=== PATIENT | male | born 1980 | race African-American/Black ===

== ENCOUNTER 2023-07-28 10:19 | Emergency (ER) | payer BC ==
[~2023-07-28] VITALS: Ht 180.3 cm; Wt 59.5 kg
[2023-07-28 10:48] LABS: APPEARANCE, URINE CLEAR (CLEAR); BACTERIA, URINE AUTO NEGATIVE (NEGATIVE); BILIRUBIN, URINE AUTO NEGATIVE (NEGATIVE); BLOOD, URINE BLOOD 1+ (NEGATIVE); COLOR, URINE YELLOW (YELLOW); GLUCOSE, URINE (UA) AUTO NEGATIVE (NEGATIVE); KETONE, URINE AUTO NEGATIVE (NEGATIVE); LEUKOCYTE ESTERASE, URINE AUTO NEGATIVE (NEGATIVE); NITRITE, URINE AUTO NEGATIVE (NEGATIVE); PROTEIN, URINE AUTO 1+ mg/dL (NEGATIVE); RBC, URINE AUTO 0 /HPF (0-3); SPECIFIC GRAVITY URINE AUTO 1.004 (1.002-1.035); SQUAMOUS EPITHELIAL CELL UR AU 0 /HPF (0-6); UROBILINOGEN, URINE AUTO 0.2 mg/dL (0.0-2.0); WBC, URINE AUTO 1 /HPF (0-3)
[2023-07-28] MEDS ORDERED: NS 1,000 ML IV ONE (12:40)
[2023-07-28 13:26] LABS: HEMATOCRIT 27.1 % (42.0-52.0); HEMOGLOBIN 8.4 g/dl (13.5-17.5); MEAN CORPUSCULAR HEMOGLOBIN 23.4 pg (27.0-33.0); MEAN CORPUSCULAR VOLUME 75.5 fl (80.0-96.0); PLATELET COUNT, AUTOMATED 626 10^3/uL (150-450); RED BLOOD COUNT 3.59 10^6/uL (4.30-6.10); WHITE BLOOD COUNT 14.6 10^3/uL (4.0-10.0)
[2023-07-28 13:49] LABS: ERYTHROCYTE SEDIMENTATION RATE > 130 mm/hr (0-15)
[2023-07-28 13:59] LABS: BLOOD UREA NITROGEN 6 MG/DL (9-23); CALCIUM LEVEL 8.5 MG/DL (8.5-10.1); CARBON DIOXIDE LEVEL 26 MMOL/L (20-31); CHLORIDE LEVEL 98 MMOL/L (98-107); CREATININE FOR GFR 0.46 MG/DL (0.70-1.30); GLOMERULAR FILTRATION RATE > 60.0 (>60); GLUCOSE, FASTING 99 MG/DL (60-100); POTASSIUM SERUM 4.4 MMOL/L (3.5-5.1); SODIUM LEVEL 132 MMOL/L (136-145)
[2023-07-28 14:08] LABS: ATYPICAL LYMPH 5 % (0-5); LYMPHOCYTES 20 % (16-44); MONOCYTES 11 % (0-5); NEUTROPHILS 64 % (28-66); PLATELET ESTIMATE NORMAL (NORMAL)
[2023-07-28] MEDS ORDERED: ISOVUE-370 76% 100ML VIAL As Ordered ONE (14:26)
[2023-07-28 16:39] VITALS: BP 131/66; TEMP 101.2; O2SAT 97
== END 2023-07-28 17:01 | disposition home or self-care (01) ==
LOC: M ED 10:19
DX: R50.9 Fever, unspecified (principal); R59.0 Localized enlarged lymph nodes; G91.9 Hydrocephalus, unspecified; Z98.2 Presence of cerebrospinal fluid drainage device; F17.200 Nicotine dependence, unspecified, uncomplicated
CPT/HCPCS: 70450; 70491; 71260; 80048; 81001; 83605; 85025; 85652; 86140; 86618; 87040; 87207; 87469; 87484; 87486; 87581; 87633; 87798; 96360; 96361; 99284; Q9967

== ENCOUNTER → 2023-08-06 | Outpatient (CLI) | payer BC ==
[~2023-08-06] MED LIST: LIDOCAINE 1% MDV 20ML VIAL As Ordered ONE
[2023-08-06 12:15] VITALS: TEMP 101.5
[2023-08-06 12:57] VITALS: BP 121/64; O2SAT 99
== END ==
LOC: M IRPRO 11:54
PROVIDERS: ATTEND Otolaryngology
DX: R22.1 Localized swelling, mass and lump, neck (principal)

== ENCOUNTER 2023-08-23 06:22 | Day surgery (SDC) | payer BC ==
[~2023-08-23] VITALS: Ht 180.3 cm; Wt 55.6 kg
[2023-08-23] MEDS ORDERED: LR 1,000 ML IV SCH ×2 (06:35→08:50)
[2023-08-23] MEDS ORDERED: LIDOCAINE W/EPINEPHRINE 1% 20ML VIAL As Ordered ONE (06:46)
[2023-08-23] MEDS ORDERED: BACITRACIN OINTMENT 30GM TUBE As Ordered ONE (06:47)
[2023-08-23] MEDS ORDERED: fentaNYL 100 MCG/2 ML INJECTION As Ordered ONE (07:03)
[2023-08-23] MEDS ORDERED: LIDOCAINE 2% 100MG/5ML SDV (FOR ANES.) As Ordered ONE (07:03)
[2023-08-23] MEDS ORDERED: ROCURONIUM BROMIDE 50MG/5ML VIAL As Ordered ONE (07:03)
[2023-08-23] MEDS ORDERED: propofoL 200 MG/20 ML VIAL As Ordered ONE (07:03)
[2023-08-23] MEDS ORDERED: MIDAZOLAM INJ 2MG/2ML VIAL As Ordered ONE (07:03)
[2023-08-23] MEDS ORDERED: SUCCINYLCHOLINE 100MG/5ML SYRINGE As Ordered ONE (07:04)
[2023-08-23] MEDS ORDERED: ONDANSETRON 4MG 2ML VIAL As Ordered ONE (07:41)
[2023-08-23] MEDS ORDERED: HYDROmorphone HCL 2MG/ML 1ML VIAL As Ordered ONE (07:45)
[2023-08-23] MEDS ORDERED: SUGAMMADEX SODIUM 500 MG/5 ML VIAL (BRIDION) As Ordered ONE ×2 (07:45→07:46)
[2023-08-23] MEDS ORDERED: ACETAMINOPHEN 1000MG 100ML IV BAG As Ordered ONE (07:45)
[2023-08-23] MEDS ORDERED: CLINDAMYCIN 600MG/50ML PREMIX BAG As Ordered ONE (07:54)
[2023-08-23] MEDS ORDERED: oxyCODONE 5MG TAB PO PRN (08:50)
[2023-08-23] MEDS ORDERED: fentaNYL 100 MCG/2 ML INJECTION IV PRN (08:50)
[2023-08-23] MEDS ORDERED: HYDROMORPHONE HCL 0.5 MG/ 0.5 ML SYRINGE IV PRN (08:50)
[2023-08-23] MEDS ORDERED: ONDANSETRON 4MG 2ML VIAL IV PRN (08:50)
[2023-08-23 11:35] VITALS: BP 105/60; TEMP 96.5; O2SAT 97
== END 2023-08-23 11:51 | disposition home or self-care (01) ==
LOC: M SDC 06:22
PROVIDERS: ATTEND Otolaryngology
DX: C81.11 Nodular sclerosis Hodgkin lymphoma, lymph nodes of head, face, and neck (principal)
CPT/HCPCS: 38510; 88305; J0131; J0330; J0737; J1100; J1170; J2250; J2405; J3010

== ENCOUNTER 2023-10-02 15:29 | Inpatient (IN) | payer BC ==
[~2023-10-02] VITALS: Ht 180.3 cm; Wt 50.4 kg
[~2023-10-02 15:29] MED LIST changes: +ACET-683 PO; +HYDR-3713 PO; +LEVO1TAB39 PO; -LIDOCAINE 1% MDV 20ML VIAL As Ordered ONE; +NAPR500T6 PO
[2023-10-02 16:43] LABS: ALBUMIN 1.3 G/DL (3.2-5.2); ALKALINE PHOSPHATASE 161 U/L (46-116); ALT/SGPT 19 U/L (7.0-40); AST/SGOT 34 U/L (<34); BILIRUBIN,DIRECT 0.4 MG/DL (<0.4); BILIRUBIN,TOTAL 0.8 MG/DL (0.3-1.2); BLOOD UREA NITROGEN 11 MG/DL (9-23); CALCIUM LEVEL 7.8 MG/DL (8.5-10.1); CARBON DIOXIDE LEVEL 25 MMOL/L (20-31); CHLORIDE LEVEL 90 MMOL/L (98-107); CREATININE FOR GFR 0.33 MG/DL (0.70-1.30); GLOMERULAR FILTRATION RATE > 60.0 (>60); GLUCOSE, FASTING 79 MG/DL (60-100); POTASSIUM SERUM 4.3 MMOL/L (3.5-5.1); SODIUM LEVEL 126 MMOL/L (136-145); TOTAL PROTEIN 5.7 G/DL (5.7-8.2)
[2023-10-02] MEDS ORDERED: NS 1,000 ML IV ONE ×2 (16:50→18:00)
[2023-10-02] MEDS ORDERED: ISOVUE-370 76% 100ML VIAL As Ordered ONE (16:58)
[2023-10-02] MEDS ORDERED: cefTRIAXone SOD 2 GM in D5W MINI-BAG PLUS 50 ML IV ONE (17:00)
[2023-10-02 17:36] LABS: HEMATOCRIT 21.7 % (42.0-52.0); LYMPH # 0.7 10^3/uL (1.5-5.0); MEAN CORPUSCULAR HEMOGLOBIN 23.3 pg (27.0-33.0); MEAN CORPUSCULAR HGB CONC 29.5 g/dl (32.0-36.5); MEAN CORPUSCULAR VOLUME 78.9 fl (80.0-96.0); MONO # 0.6 10^3/uL (0.0-0.8); MONO % 8.4 % (2.0-8.0); NEUTROPHILS # 5.5 10^3/uL (1.5-8.5); NEUTROPHILS % 80.9 % (36.0-66.0); PLATELET COUNT, AUTOMATED 249 10^3/uL (150-450); RED BLOOD COUNT 2.75 10^6/uL (4.30-6.10); VENOUS HCO3 29.8 MMOL/L (23.0-27.0); VENOUS O2 SATURATION 72.3 % (60.0-80.0); VENOUS PARTIAL PRESSURE CO2 45.6 mmHg (38.0-50.0); VENOUS PARTIAL PRESSURE O2 41.2 mmHg (30.0-50.0); VENOUS PH 7.433 UNITS (7.330-7.430); VENOUS STANDARD HCO3 28.6 MMOL/L; VENOUS TOTAL CO2 31.2 MMOL/L (24.0-28.0); WHITE BLOOD COUNT 6.8 10^3/uL (4.0-10.0)
[2023-10-02 17:38] LABS: HEMOGLOBIN 6.4 g/dl (13.5-17.5)
[2023-10-02] MEDS ORDERED: MED REC IN PROGRESS XX SCH (17:40)
[2023-10-02 17:43] LABS: THYROID STIMULATING HORMONE 1.169 uIU/ML (0.55-4.78)
[2023-10-02 17:48] LABS: INR 1.52; PROTHROMBIN TIME 17.8 SECONDS (12.5-14.5)
[2023-10-02] MEDS ORDERED: IBUP200C25 PO (18:16)
[2023-10-02] MEDS ORDERED: HOME MED LIST COMPLETE! XX SCH (18:20)
[2023-10-02 18:25] LABS: PROCALCITONIN 5.58 ng/ml
[2023-10-02 18:39] LABS: HEMOGLOBIN 4.6 g/dl (13.5-17.5)
[2023-10-02 18:40] LABS: HEMATOCRIT 15.8 % (42.0-52.0)
[2023-10-02] MEDS ORDERED: CALCIUM GLUCONATE 1,000 MG in D5W MINI-BAG PLUS 100 ML IV ONE (18:40)
[2023-10-02 19:26] LABS: OSMOLALITY SERUM 252 MOSM/KG (275-295)
[2023-10-02] MEDS: DOXYCYCLINE HYCLATE 100MG TABLET PO SCH (19:50)
[2023-10-02] MEDS: NS 1,000 ML IV SCH (19:50)
[2023-10-02 21:18] VITALS: BP 118/78; TEMP 99.1; O2SAT 98
[2023-10-02 21:27] VITALS: BP 128/78; TEMP 99.1
[2023-10-02 21:38] VITALS: BP 124/76; TEMP 99.1; O2SAT 98
[2023-10-02 22:15] VITALS: BP 124/76; TEMP 98.9; O2SAT 98
[2023-10-02 23:00] VITALS: BP 128/74; TEMP 98.9; O2SAT 98
[2023-10-03 01:49] VITALS: BP 141/86; TEMP 100.2; O2SAT 97
[2023-10-03 02:03] VITALS: BP 137/88; TEMP 99.4; O2SAT 98
[2023-10-03 02:23] VITALS: BP 124/78; TEMP 99; O2SAT 98
[2023-10-03 03:00] VITALS: BP 118/78; TEMP 99.3; O2SAT 98
[2023-10-03 03:50] VITALS: BP 124/74; TEMP 98.9; O2SAT 98
[2023-10-03 04:46] LABS: SODIUM,RANDOM URINE 42 MMOL/L
[2023-10-03 04:56] LABS: BLOOD UREA NITROGEN 8 MG/DL (9-23); CALCIUM LEVEL 6.6 MG/DL (8.5-10.1); CARBON DIOXIDE LEVEL 23 MMOL/L (20-31); CHLORIDE LEVEL 91 MMOL/L (98-107); CREATININE FOR GFR 0.29 MG/DL (0.70-1.30); GLOMERULAR FILTRATION RATE > 60.0 (>60); GLUCOSE, FASTING 82 MG/DL (60-100); POTASSIUM SERUM 3.7 MMOL/L (3.5-5.1); SODIUM LEVEL 123 MMOL/L (136-145)
[2023-10-03 05:00] LABS: OSMOLALITY URINE 644 MOSM/KG (50-1400)
[2023-10-03] MEDS: NS 1,000 ML IV SCH (06:23)
[2023-10-03 08:34] LABS: BASO % 0.1 % (0.0-1.0); HEMATOCRIT 27.3 % (42.0-52.0); LYMPH # 0.8 10^3/uL (1.5-5.0); LYMPH % 9.9 % (24.0-44.0); MEAN CORPUSCULAR HEMOGLOBIN 25.9 pg (27.0-33.0); MEAN CORPUSCULAR VOLUME 78.4 fl (80.0-96.0); MONO # 0.6 10^3/uL (0.0-0.8); MONO % 6.9 % (2.0-8.0); NEUTROPHILS # 6.9 10^3/uL (1.5-8.5); NEUTROPHILS % 82.7 % (36.0-66.0); PLATELET COUNT, AUTOMATED 247 10^3/uL (150-450); RED BLOOD COUNT 3.48 10^6/uL (4.30-6.10); WHITE BLOOD COUNT 8.3 10^3/uL (4.0-10.0)
[2023-10-03] MEDS: DOXYCYCLINE HYCLATE 100MG TABLET PO SCH ×2 (08:40→21:11)
[2023-10-03] MEDS ORDERED: MIRALAX *UNIT DOSE* 17GM PACKET PO PRN (08:50)
[2023-10-03] MEDS ORDERED: SENOKOT S TAB PO PRN (08:50)
[2023-10-03 08:51] LABS: MAGNESIUM LEVEL 1.8 MG/DL (1.8-2.4)
[2023-10-03 08:56] LABS: ALKALINE PHOSPHATASE 134 U/L (46-116); ALT/SGPT 14 U/L (7.0-40); AST/SGOT 24 U/L (<34); BILIRUBIN,TOTAL 1.2 MG/DL (0.3-1.2); BLOOD UREA NITROGEN 8 MG/DL (9-23); CARBON DIOXIDE LEVEL 25 MMOL/L (20-31); CHLORIDE LEVEL 93 MMOL/L (98-107); CREATININE FOR GFR 0.27 MG/DL (0.70-1.30); GLOMERULAR FILTRATION RATE > 60.0 (>60); GLUCOSE, FASTING 82 MG/DL (60-100); POTASSIUM SERUM 3.3 MMOL/L (3.5-5.1); SODIUM LEVEL 126 MMOL/L (136-145); TOTAL PROTEIN 4.7 G/DL (5.7-8.2)
[2023-10-03] MEDS: DICLOFENAC EPOLAMINE 1.3% PATCH TOP SCH ×2 (09:00→21:00)
[2023-10-03] MEDS ORDERED: POTASSIUM CHLORIDE 10% LIQ 20MEQ/15ML UDC PO ONE (10:55)
[2023-10-03] MEDS ORDERED: ISOVUE-370 76% 100ML VIAL As Ordered ONE (10:59)
[2023-10-03] MEDS ORDERED: ENOXAPARIN 40MG/0.4ML SYRINGE (J1650 PER 10MG) SC ONE (12:00)
[2023-10-03] MEDS ORDERED: PERCOCET 5MG/325MG TAB PO ONE (12:00)
[2023-10-03] MEDS ORDERED: CALCIUM GLUCONATE 1,000 MG in D5W MINI-BAG PLUS 100 ML IV ONE ×2 (12:00→18:30)
[2023-10-03] MEDS: CALCIUM/VITAMIN D 500 MG TAB PO SCH ×2 (12:04→18:11)
[2023-10-03] MEDS: SODIUM CHLORIDE 1 GM TAB PO SCH ×2 (12:30→18:11)
[2023-10-03 12:32] LABS: BLOOD UREA NITROGEN 8 MG/DL (9-23); CALCIUM LEVEL 7.3 MG/DL (8.5-10.1); CARBON DIOXIDE LEVEL 25 MMOL/L (20-31); CHLORIDE LEVEL 92 MMOL/L (98-107); CREATININE FOR GFR 0.27 MG/DL (0.70-1.30); GLOMERULAR FILTRATION RATE > 60.0 (>60); GLUCOSE, FASTING 84 MG/DL (60-100); POTASSIUM SERUM 3.2 MMOL/L (3.5-5.1); SODIUM LEVEL 126 MMOL/L (136-145)
[2023-10-03] MEDS ORDERED: MAG SULF 1GM/100ML (MAG RUN) 1 GM in IV 1 EA IV ONE (13:00)
[2023-10-03] MEDS: KCL 40MEQ in NS 1000ML 1,000 ML IV SCH ×2 (13:37→21:12)
[2023-10-03] MEDS ORDERED: MEGESTROL 400MG 10ML SUSP ORAL SYRINGE *DRAW UP EXACT DOSE PO ONE (17:00)
[2023-10-03] MEDS ORDERED: cefTRIAXone SOD 2 GM in D5W MINI-BAG PLUS 50 ML IV SCH (18:00)
[2023-10-03 19:22] LABS: BLOOD UREA NITROGEN 9 MG/DL (9-23); CALCIUM LEVEL 7.2 MG/DL (8.5-10.1); CARBON DIOXIDE LEVEL 26 MMOL/L (20-31); CHLORIDE LEVEL 96 MMOL/L (98-107); CREATININE FOR GFR 0.29 MG/DL (0.70-1.30); GLOMERULAR FILTRATION RATE > 60.0 (>60); GLUCOSE, FASTING 95 MG/DL (60-100); SODIUM LEVEL 129 MMOL/L (136-145)
[2023-10-03] MEDS: MAGNESIUM OXIDE 400MG TAB (MAG-OX) PO SCH (21:10)
[2023-10-03] MEDS: POTASSIUM CHLORIDE 10MEQ SR TABLET PO SCH (21:12)
[2023-10-04 01:18] LABS: BLOOD UREA NITROGEN 11 MG/DL (9-23); CALCIUM LEVEL 7.1 MG/DL (8.5-10.1); CARBON DIOXIDE LEVEL 24 MMOL/L (20-31); CHLORIDE LEVEL 93 MMOL/L (98-107); CREATININE FOR GFR 0.33 MG/DL (0.70-1.30); GLOMERULAR FILTRATION RATE > 60.0 (>60); GLUCOSE, FASTING 96 MG/DL (60-100); POTASSIUM SERUM 4.3 MMOL/L (3.5-5.1); SODIUM LEVEL 126 MMOL/L (136-145)
[2023-10-04 06:48] LABS: BASO % 0.1 % (0.0-1.0); HEMATOCRIT 28.9 % (42.0-52.0); HEMOGLOBIN 9.4 g/dl (13.5-17.5); LYMPH # 0.6 10^3/uL (1.5-5.0); LYMPH % 7.3 % (24.0-44.0); MEAN CORPUSCULAR HEMOGLOBIN 25.5 pg (27.0-33.0); MEAN CORPUSCULAR HGB CONC 32.5 g/dl (32.0-36.5); MEAN CORPUSCULAR VOLUME 78.5 fl (80.0-96.0); MONO # 0.4 10^3/uL (0.0-0.8); NEUTROPHILS # 7.7 10^3/uL (1.5-8.5); NEUTROPHILS % 87.1 % (36.0-66.0); PLATELET COUNT, AUTOMATED 247 10^3/uL (150-450); RED BLOOD COUNT 3.68 10^6/uL (4.30-6.10); WHITE BLOOD COUNT 8.8 10^3/uL (4.0-10.0)
[2023-10-04 07:21] LABS: BLOOD UREA NITROGEN 8 MG/DL (9-23); CALCIUM LEVEL 6.8 MG/DL (8.5-10.1); CARBON DIOXIDE LEVEL 22 MMOL/L (20-31); CHLORIDE LEVEL 95 MMOL/L (98-107); CREATININE FOR GFR 0.27 MG/DL (0.70-1.30); GLOMERULAR FILTRATION RATE > 60.0 (>60); GLUCOSE, FASTING 98 MG/DL (60-100); POTASSIUM SERUM 4.9 MMOL/L (3.5-5.1); SODIUM LEVEL 125 MMOL/L (136-145)
[2023-10-04] MEDS: KCL 40MEQ in NS 1000ML 1,000 ML IV SCH ×2 (07:30→13:02)
[2023-10-04] MEDS ORDERED: ISOVUE-370 76% 100ML VIAL As Ordered ONE (07:50)
[2023-10-04 08:00] VITALS: BP 122/68; PULSE 89; TEMP 98.4; O2SAT 95
[2023-10-04] MEDS: SODIUM CHLORIDE 1 GM TAB PO SCH ×3 (09:48→18:22)
[2023-10-04] MEDS: DOXYCYCLINE HYCLATE 100MG TABLET PO SCH ×2 (09:49→20:20)
[2023-10-04] MEDS: POTASSIUM CHLORIDE 10MEQ SR TABLET PO SCH ×2 (09:49→20:09)
[2023-10-04] MEDS: ENOXAPARIN 40MG/0.4ML SYRINGE (J1650 PER 10MG) SC SCH (09:49)
[2023-10-04] MEDS: CALCIUM/VITAMIN D 500 MG TAB PO SCH ×3 (09:50→18:23)
[2023-10-04] MEDS: MAGNESIUM OXIDE 400MG TAB (MAG-OX) PO SCH ×2 (09:50→20:20)
[2023-10-04] MEDS: PERCOCET 5MG/325MG TAB PO PRN (09:50)
[2023-10-04] MEDS: MEGESTROL 400MG 10ML SUSP ORAL SYRINGE *DRAW UP EXACT DOSE PO SCH (09:51)
[2023-10-04] MEDS: DICLOFENAC EPOLAMINE 1.3% PATCH TOP SCH ×2 (09:52→20:19)
[2023-10-04] MEDS: guaiFENesin DM LIQ 10ML UD PO SCH ×2 (12:06→18:23)
[2023-10-04 12:20] VITALS: BP 119/89; TEMP 97.5; O2SAT 96
[2023-10-04 12:46] LABS: BLOOD UREA NITROGEN 9 MG/DL (9-23); CALCIUM LEVEL 7.3 MG/DL (8.5-10.1); CARBON DIOXIDE LEVEL 21 MMOL/L (20-31); CHLORIDE LEVEL 94 MMOL/L (98-107); CREATININE FOR GFR 0.25 MG/DL (0.70-1.30); GLOMERULAR FILTRATION RATE > 60.0 (>60); GLUCOSE, FASTING 107 MG/DL (60-100); SODIUM LEVEL 124 MMOL/L (136-145)
[2023-10-04] MEDS: BACITRACIN OINTMENT 30GM TUBE TOP SCH ×2 (14:11→20:19)
[2023-10-04] MEDS: CEFDINIR 300 MG CAP (OMNICEF) PO SCH (20:19)
[2023-10-04 20:52] VITALS: BP 120/78; TEMP 97.2; O2SAT 96
[2023-10-04] MEDS ORDERED: NS 1,000 ML IV SCH (23:28)
[2023-10-05] MEDS: guaiFENesin DM LIQ 10ML UD PO SCH ×2 (00:16→06:29)
[2023-10-05 05:01] VITALS: BP 128/85; TEMP 97; O2SAT 93
[2023-10-05 06:24] LABS: HEMATOCRIT 29.4 % (42.0-52.0); HEMOGLOBIN 9.5 g/dl (13.5-17.5); LYMPH # 0.4 10^3/uL (1.5-5.0); LYMPH % 4.1 % (24.0-44.0); MEAN CORPUSCULAR HEMOGLOBIN 25.6 pg (27.0-33.0); MEAN CORPUSCULAR HGB CONC 32.3 g/dl (32.0-36.5); MEAN CORPUSCULAR VOLUME 79.2 fl (80.0-96.0); MONO # 0.4 10^3/uL (0.0-0.8); NEUTROPHILS # 8.5 10^3/uL (1.5-8.5); NEUTROPHILS % 91.4 % (36.0-66.0); PLATELET COUNT, AUTOMATED 227 10^3/uL (150-450); RED BLOOD COUNT 3.71 10^6/uL (4.30-6.10); WHITE BLOOD COUNT 9.3 10^3/uL (4.0-10.0)
[2023-10-05 06:45] LABS: BLOOD UREA NITROGEN 10 MG/DL (9-23); CALCIUM LEVEL 7.4 MG/DL (8.5-10.1); CARBON DIOXIDE LEVEL 23 MMOL/L (20-31); CHLORIDE LEVEL 93 MMOL/L (98-107); CREATININE FOR GFR 0.28 MG/DL (0.70-1.30); GLOMERULAR FILTRATION RATE > 60.0 (>60); GLUCOSE, FASTING 67 MG/DL (60-100); POTASSIUM SERUM 4.7 MMOL/L (3.5-5.1); SODIUM LEVEL 123 MMOL/L (136-145)
[2023-10-05] MEDS: POTASSIUM CHLORIDE 10MEQ SR TABLET PO SCH ×2 (08:44→20:05)
[2023-10-05] MEDS: CALCIUM/VITAMIN D 500 MG TAB PO SCH ×3 (09:04→17:21)
[2023-10-05] MEDS: BACITRACIN OINTMENT 30GM TUBE TOP SCH ×2 (09:04→20:04)
[2023-10-05] MEDS: DOXYCYCLINE HYCLATE 100MG TABLET PO SCH ×2 (09:04→20:05)
[2023-10-05] MEDS: DICLOFENAC EPOLAMINE 1.3% PATCH TOP SCH ×2 (09:04→20:04)
[2023-10-05] MEDS: ENOXAPARIN 40MG/0.4ML SYRINGE (J1650 PER 10MG) SC SCH (09:04)
[2023-10-05] MEDS: CEFDINIR 300 MG CAP (OMNICEF) PO SCH ×2 (09:04→20:05)
[2023-10-05 09:28] LABS: OSMOLALITY SERUM 258 MOSM/KG (275-295)
[2023-10-05 09:30] LABS: OSMOLALITY URINE 535 MOSM/KG (50-1400)
[2023-10-05 09:39] LABS: SODIUM,RANDOM URINE 131 MMOL/L
[2023-10-05 09:45] LABS: MAGNESIUM LEVEL 1.9 MG/DL (1.8-2.4)
[2023-10-05] MEDS: MAGNESIUM OXIDE 400MG TAB (MAG-OX) PO SCH ×2 (10:42→20:05)
[2023-10-05] MEDS: MEGESTROL 400MG 10ML SUSP ORAL SYRINGE *DRAW UP EXACT DOSE PO SCH (10:42)
[2023-10-05] MEDS ORDERED: SERTRALINE HCL 50 MG TAB PO ONE (11:15)
[2023-10-05] MEDS ORDERED: guaiFENesin DM LIQ 10ML UD PO PRN (12:00)
[2023-10-05] MEDS: NS 1,000 ML IV SCH ×2 (12:03→23:35)
[2023-10-05] MEDS: PERCOCET 5MG/325MG TAB PO PRN (12:07)
[2023-10-05 12:54] LABS: BLOOD UREA NITROGEN 12 MG/DL (9-23); CALCIUM LEVEL 7.6 MG/DL (8.5-10.1); CARBON DIOXIDE LEVEL 22 MMOL/L (20-31); CHLORIDE LEVEL 94 MMOL/L (98-107); CREATININE FOR GFR 0.25 MG/DL (0.70-1.30); GLOMERULAR FILTRATION RATE > 60.0 (>60); GLUCOSE, FASTING 89 MG/DL (60-100); POTASSIUM SERUM 4.7 MMOL/L (3.5-5.1); SODIUM LEVEL 125 MMOL/L (136-145)
[2023-10-05 14:00] VITALS: BP 101/69; TEMP 97; O2SAT 96
[2023-10-05 14:08] LABS: BODY FLUID CULTURE Not indicated. (.); LEGIONELLA ANTIGEN URINE Negative (Negative); ORGANISM ID Not indicated. (.); SPECIMEN SOURCE Urine (.); URINE STREP PNEUMONIAE ANTIGEN Negative (Negative)
[2023-10-05 19:19] LABS: BLOOD UREA NITROGEN 11 MG/DL (9-23); CALCIUM LEVEL 5.7 MG/DL (8.5-10.1); CARBON DIOXIDE LEVEL 21 MMOL/L (20-31); CHLORIDE LEVEL 102 MMOL/L (98-107); CREATININE FOR GFR 0.22 MG/DL (0.70-1.30); GLOMERULAR FILTRATION RATE > 60.0 (>60); GLUCOSE, FASTING 69 MG/DL (60-100); POTASSIUM SERUM 3.5 MMOL/L (3.5-5.1); SODIUM LEVEL 130 MMOL/L (136-145)
[2023-10-05] MEDS ORDERED: CALCIUM GLUCONATE 1,000 MG in D5W MINI-BAG PLUS 100 ML IV ONE (20:15)
[2023-10-05 21:20] VITALS: BP 128/86; TEMP 97.9; O2SAT 98
[2023-10-06 00:40] LABS: BLOOD UREA NITROGEN 9 MG/DL (9-23); CALCIUM LEVEL 7.7 MG/DL (8.5-10.1); CARBON DIOXIDE LEVEL 22 MMOL/L (20-31); CHLORIDE LEVEL 96 MMOL/L (98-107); CREATININE FOR GFR 0.26 MG/DL (0.70-1.30); GLOMERULAR FILTRATION RATE > 60.0 (>60); GLUCOSE, FASTING 73 MG/DL (60-100); POTASSIUM SERUM 4.5 MMOL/L (3.5-5.1); SODIUM LEVEL 126 MMOL/L (136-145)
[2023-10-06 05:30] VITALS: BP 126/88; TEMP 97.9; O2SAT 96
[2023-10-06 05:38] LABS: BASO % 0.1 % (0.0-1.0); HEMATOCRIT 27.9 % (42.0-52.0); HEMOGLOBIN 8.9 g/dl (13.5-17.5); LYMPH # 0.3 10^3/uL (1.5-5.0); LYMPH % 3.3 % (24.0-44.0); MEAN CORPUSCULAR HEMOGLOBIN 25.4 pg (27.0-33.0); MEAN CORPUSCULAR HGB CONC 31.9 g/dl (32.0-36.5); MEAN CORPUSCULAR VOLUME 79.5 fl (80.0-96.0); MONO # 0.3 10^3/uL (0.0-0.8); MONO % 3.6 % (2.0-8.0); NEUTROPHILS # 7.4 10^3/uL (1.5-8.5); NEUTROPHILS % 92.5 % (36.0-66.0); PLATELET COUNT, AUTOMATED 212 10^3/uL (150-450); RED BLOOD COUNT 3.51 10^6/uL (4.30-6.10)
[2023-10-06 05:59] LABS: BLOOD UREA NITROGEN 11 MG/DL (9-23); CALCIUM LEVEL 6.9 MG/DL (8.5-10.1); CARBON DIOXIDE LEVEL 21 MMOL/L (20-31); CHLORIDE LEVEL 94 MMOL/L (98-107); CREATININE FOR GFR 0.27 MG/DL (0.70-1.30); GLOMERULAR FILTRATION RATE > 60.0 (>60); GLUCOSE, FASTING 68 MG/DL (60-100); POTASSIUM SERUM 4.7 MMOL/L (3.5-5.1); SODIUM LEVEL 123 MMOL/L (136-145)
[2023-10-06] MEDS: POTASSIUM CHLORIDE 10MEQ SR TABLET PO SCH ×2 (09:00→20:27)
[2023-10-06] MEDS: CEFDINIR 300 MG CAP (OMNICEF) PO SCH ×2 (09:38→20:27)
[2023-10-06] MEDS: SERTRALINE HCL 50 MG TAB PO SCH (09:39)
[2023-10-06] MEDS: CALCIUM/VITAMIN D 500 MG TAB PO SCH ×3 (09:39→17:02)
[2023-10-06] MEDS: ENOXAPARIN 40MG/0.4ML SYRINGE (J1650 PER 10MG) SC SCH (09:39)
[2023-10-06] MEDS: MAGNESIUM OXIDE 400MG TAB (MAG-OX) PO SCH ×2 (09:39→20:27)
[2023-10-06] MEDS: DOXYCYCLINE HYCLATE 100MG TABLET PO SCH ×2 (09:39→20:27)
[2023-10-06] MEDS: BACITRACIN OINTMENT 30GM TUBE TOP SCH ×2 (09:39→20:27)
[2023-10-06] MEDS: MEGESTROL 400MG 10ML SUSP ORAL SYRINGE *DRAW UP EXACT DOSE PO SCH (09:40)
[2023-10-06] MEDS ORDERED: TOLVAPTAN 7.5 MG HALF-TAB PO ONE (11:00)
[2023-10-06] MEDS: DICLOFENAC EPOLAMINE 1.3% PATCH TOP SCH ×2 (12:08→20:28)
[2023-10-06 13:06] LABS: BLOOD UREA NITROGEN 14 MG/DL (9-23); CARBON DIOXIDE LEVEL 21 MMOL/L (20-31); CHLORIDE LEVEL 93 MMOL/L (98-107); CREATININE FOR GFR 0.28 MG/DL (0.70-1.30); GLOMERULAR FILTRATION RATE > 60.0 (>60); GLUCOSE, FASTING 72 MG/DL (60-100); POTASSIUM SERUM 4.4 MMOL/L (3.5-5.1); SODIUM LEVEL 123 MMOL/L (136-145)
[2023-10-06 14:00] VITALS: BP 116/78; TEMP 98.6; O2SAT 95
[2023-10-06 19:03] LABS: BLOOD UREA NITROGEN 14 MG/DL (9-23); CALCIUM LEVEL 7.1 MG/DL (8.5-10.1); CARBON DIOXIDE LEVEL 21 MMOL/L (20-31); CHLORIDE LEVEL 94 MMOL/L (98-107); CREATININE FOR GFR 0.29 MG/DL (0.70-1.30); GLOMERULAR FILTRATION RATE > 60.0 (>60); GLUCOSE, FASTING 116 MG/DL (60-100); SODIUM LEVEL 124 MMOL/L (136-145)
[2023-10-06 19:50] VITALS: BP 137/93; TEMP 97.9; O2SAT 96
[2023-10-07 00:41] LABS: BLOOD UREA NITROGEN 13 MG/DL (9-23); CALCIUM LEVEL 7.5 MG/DL (8.5-10.1); CARBON DIOXIDE LEVEL 23 MMOL/L (20-31); CHLORIDE LEVEL 96 MMOL/L (98-107); CREATININE FOR GFR 0.31 MG/DL (0.70-1.30); GLOMERULAR FILTRATION RATE > 60.0 (>60); GLUCOSE, FASTING 75 MG/DL (60-100); POTASSIUM SERUM 4.2 MMOL/L (3.5-5.1); SODIUM LEVEL 127 MMOL/L (136-145)
[2023-10-07 05:00] VITALS: BP 135/92; TEMP 97.5; O2SAT 97
[2023-10-07 05:08] LABS: HEMATOCRIT 28.3 % (42.0-52.0); HEMOGLOBIN 9.2 g/dl (13.5-17.5); LYMPH # 0.3 10^3/uL (1.5-5.0); LYMPH % 4.1 % (24.0-44.0); MEAN CORPUSCULAR HEMOGLOBIN 25.6 pg (27.0-33.0); MEAN CORPUSCULAR HGB CONC 32.5 g/dl (32.0-36.5); MEAN CORPUSCULAR VOLUME 78.6 fl (80.0-96.0); MONO # 0.2 10^3/uL (0.0-0.8); MONO % 3.6 % (2.0-8.0); NEUTROPHILS % 91.7 % (36.0-66.0); PLATELET COUNT, AUTOMATED 201 10^3/uL (150-450); WHITE BLOOD COUNT 6.6 10^3/uL (4.0-10.0)
[2023-10-07 05:40] LABS: BLOOD UREA NITROGEN 15 MG/DL (9-23); CALCIUM LEVEL 7.1 MG/DL (8.5-10.1); CARBON DIOXIDE LEVEL 22 MMOL/L (20-31); CHLORIDE LEVEL 99 MMOL/L (98-107); CREATININE FOR GFR 0.29 MG/DL (0.70-1.30); GLOMERULAR FILTRATION RATE > 60.0 (>60); GLUCOSE, FASTING 97 MG/DL (60-100); MAGNESIUM LEVEL 2.1 MG/DL (1.8-2.4); POTASSIUM SERUM 4.4 MMOL/L (3.5-5.1); SODIUM LEVEL 130 MMOL/L (136-145)
[2023-10-07 07:30] VITALS: BP 128/84; O2SAT 98
[2023-10-07] MEDS: DICLOFENAC EPOLAMINE 1.3% PATCH TOP SCH ×2 (09:00→20:51)
[2023-10-07] MEDS: POTASSIUM CHLORIDE 10MEQ SR TABLET PO SCH ×2 (09:50→20:55)
[2023-10-07] MEDS: CEFDINIR 300 MG CAP (OMNICEF) PO SCH ×2 (09:50→20:55)
[2023-10-07] MEDS: MAGNESIUM OXIDE 400MG TAB (MAG-OX) PO SCH ×2 (09:50→20:55)
[2023-10-07] MEDS: SERTRALINE HCL 50 MG TAB PO SCH (09:50)
[2023-10-07] MEDS: CALCIUM/VITAMIN D 500 MG TAB PO SCH ×3 (09:50→17:34)
[2023-10-07] MEDS: DOXYCYCLINE HYCLATE 100MG TABLET PO SCH ×2 (09:50→20:55)
[2023-10-07] MEDS: MEGESTROL 400MG 10ML SUSP ORAL SYRINGE *DRAW UP EXACT DOSE PO SCH (09:51)
[2023-10-07] MEDS: ENOXAPARIN 40MG/0.4ML SYRINGE (J1650 PER 10MG) SC SCH (09:52)
[2023-10-07 14:00] VITALS: BP 128/81; TEMP 97.7; O2SAT 97
[2023-10-07 20:45] VITALS: BP 127/82; TEMP 97.9; O2SAT 96
[2023-10-07] MEDS: traZODone 50 MG TAB PO PRN (20:55)
[2023-10-08 05:15] VITALS: BP 128/82; TEMP 98.1; O2SAT 94
[2023-10-08 06:40] LABS: BASO % 0.2 % (0.0-1.0); HEMATOCRIT 28.3 % (42.0-52.0); HEMOGLOBIN 9.1 g/dl (13.5-17.5); LYMPH # 0.2 10^3/uL (1.5-5.0); LYMPH % 5.2 % (24.0-44.0); MEAN CORPUSCULAR HEMOGLOBIN 25.6 pg (27.0-33.0); MEAN CORPUSCULAR HGB CONC 32.2 g/dl (32.0-36.5); MEAN CORPUSCULAR VOLUME 79.5 fl (80.0-96.0); MONO # 0.2 10^3/uL (0.0-0.8); MONO % 4.7 % (2.0-8.0); NEUTROPHILS # 3.9 10^3/uL (1.5-8.5); NEUTROPHILS % 88.5 % (36.0-66.0); PLATELET COUNT, AUTOMATED 194 10^3/uL (150-450); RED BLOOD COUNT 3.56 10^6/uL (4.30-6.10); WHITE BLOOD COUNT 4.4 10^3/uL (4.0-10.0)
[2023-10-08 07:05] LABS: BLOOD UREA NITROGEN 17 MG/DL (9-23); CALCIUM LEVEL 7.8 MG/DL (8.5-10.1); CARBON DIOXIDE LEVEL 23 MMOL/L (20-31); CHLORIDE LEVEL 100 MMOL/L (98-107); CREATININE FOR GFR 0.28 MG/DL (0.70-1.30); GLOMERULAR FILTRATION RATE > 60.0 (>60); GLUCOSE, FASTING 74 MG/DL (60-100); POTASSIUM SERUM 4.4 MMOL/L (3.5-5.1); SODIUM LEVEL 132 MMOL/L (136-145)
[2023-10-08] MEDS: CALCIUM/VITAMIN D 500 MG TAB PO SCH ×3 (09:33→17:40)
[2023-10-08] MEDS: CEFDINIR 300 MG CAP (OMNICEF) PO SCH ×2 (09:33→19:57)
[2023-10-08] MEDS: POTASSIUM CHLORIDE 10MEQ SR TABLET PO SCH ×2 (09:33→19:58)
[2023-10-08] MEDS: DOXYCYCLINE HYCLATE 100MG TABLET PO SCH ×2 (09:33→19:57)
[2023-10-08] MEDS: SERTRALINE HCL 50 MG TAB PO SCH (09:33)
[2023-10-08] MEDS: ENOXAPARIN 40MG/0.4ML SYRINGE (J1650 PER 10MG) SC SCH (09:34)
[2023-10-08] MEDS: MAGNESIUM OXIDE 400MG TAB (MAG-OX) PO SCH ×2 (09:34→19:51)
[2023-10-08] MEDS: DICLOFENAC EPOLAMINE 1.3% PATCH TOP SCH ×2 (09:39→21:00)
[2023-10-08] MEDS ORDERED: SODIUM CHLORIDE 0.9% INJ 10 ML SYR IV PRN (10:25)
[2023-10-08] MEDS: MEGESTROL 400MG 10ML SUSP ORAL SYRINGE *DRAW UP EXACT DOSE PO SCH (11:04)
[2023-10-08 11:32] LABS: INR 1.53; PROTHROMBIN TIME 17.9 SECONDS (12.5-14.5)
[2023-10-08 11:33] LABS: PARTIAL THROMBOPLASTIN TIME 57.7 SECONDS (24.8-34.2)
[2023-10-08] MEDS: METOPROLOL TART 12.5 MG PER 1/2 TAB PO SCH ×3 (12:08→23:10)
[2023-10-08] MEDS ORDERED: SUCRALFATE SUSP 1GM/10ML UD PO ONE (13:00)
[2023-10-08] MEDS ORDERED: CALCIUM GLUCONATE 1,000 MG in D5W MINI-BAG PLUS 100 ML IV ONE (13:00)
[2023-10-08] MEDS: PANTOPRAZOLE 40MG TAB (PROTONIX) PO SCH (13:03)
[2023-10-08 13:11] LABS: MAGNESIUM LEVEL 2.2 MG/DL (1.8-2.4)
[2023-10-08 14:00] VITALS: BP 127/89; TEMP 98.1; O2SAT 94
[2023-10-08 14:03] LABS: CK-MB VALUE MASS < 1.0 NG/ML (<3.6)
[2023-10-08 14:12] LABS: CPK CREATINE PHOSPHOKINASE 19 U/L (46-171); MB/CK RELATIVE INDEX 5.26 (< OR =4)
[2023-10-08 14:57] LABS: MAGNESIUM LEVEL 2.2 MG/DL (1.8-2.4)
[2023-10-08] MEDS ORDERED: MAG SULF 1GM/100ML (MAG RUN) 1 GM in IV 1 EA IV ONE (15:30)
[2023-10-08] MEDS: SUCRALFATE SUSP 1GM/10ML UD PO SCH ×2 (17:41→19:57)
[2023-10-08] MEDS: SODIUM CHLORIDE 0.9% INJ 10 ML SYR IV SCH (18:24)
[2023-10-08 18:44] LABS: IONIZED CALCIUM 4.3 MG/DL (4.5-5.3)
[2023-10-08 18:55] LABS: CK-MB VALUE MASS < 1.0 NG/ML (<3.6); MAGNESIUM LEVEL 2.6 MG/DL (1.8-2.4)
[2023-10-08 18:56] LABS: CPK CREATINE PHOSPHOKINASE 21 U/L (46-171); MB/CK RELATIVE INDEX 4.76 (< OR =4)
[2023-10-08] MEDS: traZODone 50 MG TAB PO PRN (19:57)
[2023-10-08 21:00] VITALS: BP 121/83; TEMP 98.8; O2SAT 95
[2023-10-08] MEDS ORDERED: APIXABAN 5 MG TAB (ELIQUIS) PO SCH (21:00)
[2023-10-09] VITALS (8 sets, daily range): BP systolic 113–130; BP diastolic 80–97; TEMP 90.3–97.3; O2SAT 96–97
[2023-10-09] MEDS: SODIUM CHLORIDE 0.9% INJ 10 ML SYR IV SCH ×2 (05:19→17:09)
[2023-10-09 05:25] LABS: HEMATOCRIT 33.2 % (42.0-52.0); HEMOGLOBIN 10.6 g/dl (13.5-17.5); MEAN CORPUSCULAR HEMOGLOBIN 25.8 pg (27.0-33.0); MEAN CORPUSCULAR HGB CONC 31.9 g/dl (32.0-36.5); MEAN CORPUSCULAR VOLUME 80.8 fl (80.0-96.0); PLATELET COUNT, AUTOMATED 178 10^3/uL (150-450); RED BLOOD COUNT 4.11 10^6/uL (4.30-6.10); WHITE BLOOD COUNT 4.1 10^3/uL (4.0-10.0)
[2023-10-09] MEDS: METOPROLOL TART 12.5 MG PER 1/2 TAB PO SCH ×3 (05:25→17:08)
[2023-10-09] MEDS ORDERED: DEXTROSE 50% 50ML SYRINGE As Ordered ONE (05:35)
[2023-10-09] MEDS ORDERED: DEXTROSE 50% 50ML SYRINGE IV STA (05:36)
[2023-10-09 05:52] LABS: BLOOD UREA NITROGEN 20 MG/DL (9-23); CARBON DIOXIDE LEVEL 23 MMOL/L (20-31); CHLORIDE LEVEL 96 MMOL/L (98-107); CREATININE FOR GFR 0.26 MG/DL (0.70-1.30); GLOMERULAR FILTRATION RATE > 60.0 (>60); GLUCOSE, FASTING 41 MG/DL (60-100); POTASSIUM SERUM 4.4 MMOL/L (3.5-5.1); SODIUM LEVEL 126 MMOL/L (136-145)
[2023-10-09 06:21] LABS: ATYPICAL LYMPH 1 % (0-5); HYPERSEGMENTED POLYS 1+; LYMPHOCYTES 3 % (16-44); MONOCYTES 1 % (0-5); NEUTROPHILS 95 % (28-66)
[2023-10-09 06:22] LABS: PLATELET ESTIMATE NORMAL (NORMAL)
[2023-10-09] MEDS: CEFDINIR 300 MG CAP (OMNICEF) PO SCH (08:04)
[2023-10-09] MEDS: POTASSIUM CHLORIDE 10MEQ SR TABLET PO SCH (08:04)
[2023-10-09] MEDS: SUCRALFATE SUSP 1GM/10ML UD PO SCH ×3 (08:04→17:08)
[2023-10-09] MEDS: SERTRALINE HCL 50 MG TAB PO SCH (08:04)
[2023-10-09] MEDS: CALCIUM/VITAMIN D 500 MG TAB PO SCH ×4 (08:04→17:09)
[2023-10-09] MEDS: PANTOPRAZOLE 40MG TAB (PROTONIX) PO SCH (08:05)
[2023-10-09] MEDS: MEGESTROL 400MG 10ML SUSP ORAL SYRINGE *DRAW UP EXACT DOSE PO SCH (08:05)
[2023-10-09] MEDS: MAGNESIUM OXIDE 400MG TAB (MAG-OX) PO SCH (08:05)
[2023-10-09] MEDS: DOXYCYCLINE HYCLATE 100MG TABLET PO SCH (08:05)
[2023-10-09] MEDS: DICLOFENAC EPOLAMINE 1.3% PATCH TOP SCH ×2 (08:06→08:13)
[2023-10-09] MEDS ORDERED: ENOXAPARIN 40MG/0.4ML SYRINGE (J1650 PER 10MG) SC SCH (09:00)
[2023-10-09] MEDS ORDERED: TOLVAPTAN 7.5 MG HALF-TAB PO ONE (13:00)
[2023-10-09] MEDS ORDERED: D5W/0.45% SODIUM CHLORIDE 1,000 ML IV SCH (13:20)
[2023-10-09] MEDS ORDERED: GLUCAGON INJ 1MG VIAL SC PRN (13:20)
[2023-10-09] MEDS ORDERED: DEXTROSE 50% 50ML SYRINGE IV PRN (13:20)
[2023-10-09] MEDS ORDERED: GLUCOSE 4GM CHEW TABLET PO PRN (13:20)
[2023-10-09] MEDS ORDERED: SERT50TA29 PO (17:19)
[2023-10-09] MEDS ORDERED: TRAZ-252 PO (17:19)
[2023-10-09] MEDS ORDERED: CEFD300CAP PO (17:19)
[2023-10-09 18:30] LABS: BLOOD UREA NITROGEN 21 MG/DL (9-23); CALCIUM LEVEL 6.8 MG/DL (8.5-10.1); CARBON DIOXIDE LEVEL 23 MMOL/L (20-31); CHLORIDE LEVEL 98 MMOL/L (98-107); CREATININE FOR GFR 0.25 MG/DL (0.70-1.30); GLOMERULAR FILTRATION RATE > 60.0 (>60); GLUCOSE, FASTING 321 MG/DL (60-100); SODIUM LEVEL 129 MMOL/L (136-145)
== END 2023-10-09 19:50 | disposition short-term general hospital (02) | DRG 137 ==
LOC: M ED 15:29 → M ED INP 17:36 → M PCU 10-03 15:50 → M MSPAV 10-04 12:22
PROVIDERS: ADMIT General Practice; ATTEND Internal Medicine
PROC: 30233N1 Transfusion of Nonautologous Red Blood Cells into Peripheral Vein, Percutaneous Approach (ICD-10-PCS; principal; 2023-10-02)
PROC: B246ZZZ Ultrasonography of Right and Left Heart (ICD-10-PCS; 2023-10-02)
DX: J15.69 Pneumonia due to other Gram-negative bacteria (principal); E43 Unspecified severe protein-calorie malnutrition; I31.39 Other pericardial effusion (noninflammatory); J91.8 Pleural effusion in other conditions classified elsewhere; E22.2 Syndrome of inappropriate secretion of antidiuretic hormone; C81.90 Hodgkin lymphoma, unspecified, unspecified site; E87.20 Acidosis, unspecified; I27.20 Pulmonary hypertension, unspecified; I87.1 Compression of vein; I08.1 Rheumatic disorders of both mitral and tricuspid valves; E83.51 Hypocalcemia; I48.91 Unspecified atrial fibrillation; I10 Essential (primary) hypertension; B34.8 Other viral infections of unspecified site; J44.0 Chronic obstructive pulmonary disease with (acute) lower respiratory infection; F17.210 Nicotine dependence, cigarettes, uncomplicated; F32.89 Other specified depressive episodes; F41.9 Anxiety disorder, unspecified; D64.9 Anemia, unspecified; Z20.822 Contact with and (suspected) exposure to COVID-19; Z90.49 Acquired absence of other specified parts of digestive tract; Z68.1 Body mass index [BMI] 19.9 or less, adult; G47.00 Insomnia, unspecified; Z63.0 Problems in relationship with spouse or partner; S80.01XA Contusion of right knee, initial encounter; S80.02XA Contusion of left knee, initial encounter; W19.XXXA Unspecified fall, initial encounter; Y92.230 Patient room in hospital as the place of occurrence of the external cause; J12.1 Respiratory syncytial virus pneumonia

== ENCOUNTER 2023-10-09 09:52 | Outpatient (RCR) | payer BC ==
[~2023-10-09 09:52] MED LIST changes: +IBUP200C25 PO; +ISOVUE-370 76% 100ML VIAL As Ordered ONE
[2023-10-09] MEDS ORDERED: SERT50TA29 PO (17:19)
[2023-10-09] MEDS ORDERED: TRAZ-252 PO (17:19)
[2023-10-09] MEDS ORDERED: CEFD300CAP PO (17:19)
== END 2023-10-21 ==
LOC: M ONCR 09:52
PROVIDERS: ATTEND General Practice
DX: Z51.0 Encounter for antineoplastic radiation therapy (principal); C81.92 Hodgkin lymphoma, unspecified, intrathoracic lymph nodes